=== PATIENT | male | born 1975 | race Two or more races ===

== ENCOUNTER → 2016-11-17 | Outpatient (REF) | payer BC, OTHER ==
[2016-11-17 12:47] LABS: BASO % 0.6 % (0.0-1.0); EOS # 0.1 K/mm3 (0.0-0.50); EOS % 0.9 % (0.0-3.0); LARGE UNSTAINED CELL # 0.1 K/mm3 (0.0-0.4); LARGE UNSTAINED CELL % 1.8 % (0.0-4.0); LYMPH # 2.9 K/mm3 (1.5-4.5); LYMPH % 35.1 % (24.0-44.0); MEAN CORPUSCULAR HEMOGLOBIN 29.9 pg (27.0-33.0); MEAN CORPUSCULAR HGB CONC 35.1 g/dl (32.0-36.5); MEAN CORPUSCULAR VOLUME 85.2 fl (80.0-96.0); MONO # 0.5 K/mm3 (0.0-0.8); MONO % 5.9 % (0.0-5.0); NEUTROPHILS # 4.4 K/mm3 (1.8-7.7); NEUTROPHILS % 55.8 % (36.0-66.0); PLATELET COUNT, AUTOMATED 221 k/mm3 (150-450); RED CELL DISTRIBUTION WIDTH 14.2 % (11.5-14.5); WHITE BLOOD COUNT 7.8 K/mm3 (4.0-10.0)
[2016-11-17 13:09] LABS: ALBUMIN 4.9 GM/DL (3.2-5.2); ALBUMIN/GLOBULIN RATIO 1.48 (1.00-1.93); ALKALINE PHOSPHATASE 72 U/L (45-117); ALT/SGPT 70 U/L (12-78); ANION GAP 7 MEQ/L (8-16); AST/SGOT 23 U/L (15-37); BILIRUBIN,TOTAL 1.6 MG/DL (0.2-1.0); BLOOD UREA NITROGEN 12 MG/DL (7-18); CALCIUM LEVEL 9.2 MG/DL (8.5-10.1); CARBON DIOXIDE LEVEL 29 MEQ/L (21-32); CHLORIDE LEVEL 106 MEQ/L (98-107); CHOLESTEROL LEVEL 93 MG/DL (<200); CREATININE FOR GFR 1.12 MG/DL (0.70-1.30); GLOMERULAR FILTRATION RATE > 60.0 (>60); GLUCOSE, FASTING 77 MG/DL (70-105); POTASSIUM SERUM 4.1 MEQ/L (3.5-5.1); SODIUM LEVEL 142 MEQ/L (136-145); TOTAL PROTEIN 8.2 GM/DL (6.4-8.2); TRIGLYCERIDES LEVEL 257 MG/DL (<150)
== END ==
LOC: M SFHCADAM 08:04
PROVIDERS: ATTEND Family Medicine
DX: Z00.00 Encounter for general adult medical examination without abnormal findings (principal)

== ENCOUNTER → 2017-01-05 | Outpatient (REF) | payer BC, OTHER ==
[2017-01-05 14:38] LABS: BILIRUBIN,DIRECT < 0.1 MG/DL (0.0-0.2); BILIRUBIN,TOTAL 0.6 MG/DL (0.2-1.0)
[2017-01-05 14:58] LABS: RETIC HEMOGLOBIN EQUIVALENT 37.1 pg (24-36); RETICULOCYTE % 2.6 % (0.5-1.5)
== END ==
LOC: M SFHCADAM 07:51
PROVIDERS: ATTEND Family Medicine
DX: E80.6 Other disorders of bilirubin metabolism (principal); R79.0 Abnormal level of blood mineral

== ENCOUNTER → 2017-03-13 | Outpatient (REF) | payer MEDICAID ==
[2017-03-13 12:41] LABS: MEAN CORPUSCULAR HEMOGLOBIN 28.8 pg (27.0-33.0); MEAN CORPUSCULAR HGB CONC 33.5 g/dl (32.0-36.5); PLATELET COUNT, AUTOMATED 191 10^3/uL (150-450); RED CELL DISTRIBUTION WIDTH 14.1 % (11.5-14.5); WHITE BLOOD COUNT 7.6 10^3/uL (4.0-10.0)
[2017-03-13 13:01] LABS: ALBUMIN 4.2 GM/DL (3.2-5.2); ALBUMIN/GLOBULIN RATIO 1.31 (1.00-1.93); ALKALINE PHOSPHATASE 63 U/L (45-117); ALT/SGPT 53 U/L (12-78); ANION GAP 8 MEQ/L (8-16); AST/SGOT 19 U/L (7-37); BILIRUBIN,TOTAL 0.6 MG/DL (0.2-1.0); BLOOD UREA NITROGEN 10 MG/DL (7-18); CALCIUM LEVEL 8.7 MG/DL (8.5-10.1); CARBON DIOXIDE LEVEL 28 MEQ/L (21-32); CHLORIDE LEVEL 106 MEQ/L (98-107); CREATININE FOR GFR 0.97 MG/DL (0.70-1.30); GLOMERULAR FILTRATION RATE > 60.0 (>60); GLUCOSE, FASTING 130 MG/DL (70-105); POTASSIUM SERUM 3.9 MEQ/L (3.5-5.1); SODIUM LEVEL 142 MEQ/L (136-145); TOTAL PROTEIN 7.4 GM/DL (6.4-8.2)
== END ==
LOC: M SFHCADAM 08:11
PROVIDERS: ATTEND Family Medicine
DX: E80.6 Other disorders of bilirubin metabolism (principal)

== ENCOUNTER → 2017-04-13 | Outpatient (REF) | payer MEDICAID, BC ==
[2017-04-13 14:53] LABS: ERYTHROCYTE SEDIMENTATION RATE 6 mm/hr (0-15)
[2017-04-13 15:09] LABS: C REACTIVE PROTEIN QUANTITATIV < 0.30 MG/DL (0.00-0.30); FREE T4 0.78 NG/DL (0.76-1.46)
== END ==
LOC: M SFHCADAM 13:30
DX: F32.9 Major depressive disorder, single episode, unspecified (principal); H53.9 Unspecified visual disturbance

== ENCOUNTER → 2017-04-17 | Outpatient (CLI) | payer MEDICAID | LOC: M RAD 11:36 | DX: R09.89 Other specified symptoms and signs involving the circulatory and respiratory systems (principal); R55 Syncope and collapse | CPT/HCPCS: 93880 ==

== ENCOUNTER → 2017-05-11 | Outpatient (REF) | payer OTHER ==
[2017-05-11 13:06] LABS: BASO % 0.5 % (0.0-1.0); EOS % 0.3 % (0.0-3.0); IMMATURE GRANULOCYTE % 0.2 % (0-3.0); LYMPH % 23.3 % (24.0-44.0); MEAN CORPUSCULAR HEMOGLOBIN 28.9 pg (27.0-33.0); MONO # 0.6 10^3/uL (0.0-0.8); MONO % 7.3 % (0.0-5.0); NEUTROPHILS # 5.9 10^3/uL (1.8-7.7); NEUTROPHILS % 68.4 % (36.0-66.0); PLATELET COUNT, AUTOMATED 203 10^3/uL (150-450); RED BLOOD COUNT 5.53 10^6/uL (4.30-6.10); RED CELL DISTRIBUTION WIDTH 13.5 % (11.5-14.5); WHITE BLOOD COUNT 8.6 10^3/uL (4.0-10.0)
[2017-05-11 13:12] LABS: VITAMIN B12 LEVEL 956 PG/ML
[2017-05-11 13:13] LABS: FOLATE 17.4 NG/ML
[2017-05-11 13:15] LABS: ALBUMIN 4.4 GM/DL (3.2-5.2); ALBUMIN/GLOBULIN RATIO 1.29 (1.00-1.93); ALKALINE PHOSPHATASE 78 U/L (45-117); ALT/SGPT 57 U/L (12-78); ANION GAP 8 MEQ/L (8-16); AST/SGOT 22 U/L (7-37); BILIRUBIN,TOTAL 1.2 MG/DL (0.2-1.0); BLOOD UREA NITROGEN 12 MG/DL (7-18); CALCIUM LEVEL 8.9 MG/DL (8.5-10.1); CARBON DIOXIDE LEVEL 29 MEQ/L (21-32); CHLORIDE LEVEL 104 MEQ/L (98-107); CREATININE FOR GFR 1.11 MG/DL (0.70-1.30); GLOMERULAR FILTRATION RATE > 60.0 (>60); GLUCOSE, FASTING 86 MG/DL (70-100); POTASSIUM SERUM 3.7 MEQ/L (3.5-5.1); RHEUMATOID FACTOR QUANT < 10.0 IU/ML (0-15.0); SODIUM LEVEL 141 MEQ/L (136-145); TOTAL PROTEIN 7.8 GM/DL (6.4-8.2)
[2017-05-11 13:34] LABS: ERYTHROCYTE SEDIMENTATION RATE 5 mm/hr (0-15)
[2017-05-12 14:10] LABS: ANTINUCLEAR ANTIBODIES DIRECT Negative (Negative)
== END ==
LOC: M LABNEURO 08:40
DX: R42 Dizziness and giddiness (principal)

== ENCOUNTER → 2017-06-05 | Outpatient (CLI) | payer OTHER | LOC: M SLEEP HO 08:55 | DX: G47.9 Sleep disorder, unspecified (principal) | CPT/HCPCS: G0399 ==

== ENCOUNTER → 2017-06-26 | Outpatient (CLI) | payer OTHER, MEDICAID | LOC: M SLEEP 19:04 | DX: G47.33 Obstructive sleep apnea (adult) (pediatric) (principal) | CPT/HCPCS: 95811 ==

== ENCOUNTER 2018-03-06 10:16 | Emergency (ER) | payer OTHER, MEDICAID ==
[2018-03-06 11:11] LABS: BASO # 0.1 10^3/uL (0.0-0.2); BASO % 0.6 % (0.0-1.0); EOS # 0.1 10^3/uL (0.0-0.50); EOS % 1.1 % (0.0-3.0); HEMATOCRIT 45.4 % (42.0-52.0); HEMOGLOBIN 15.8 g/dl (13.5-17.5); IMMATURE GRANULOCYTE % 0.4 % (0-3.0); LYMPH # 2.9 10^3/uL (1.5-4.5); LYMPH % 36.6 % (24.0-44.0); MEAN CORPUSCULAR HEMOGLOBIN 29.8 pg (27.0-33.0); MEAN CORPUSCULAR HGB CONC 34.8 g/dl (32.0-36.5); MEAN CORPUSCULAR VOLUME 85.7 fl (80.0-96.0); MONO # 0.5 10^3/uL (0.0-0.8); MONO % 6.6 % (0.0-5.0); NEUTROPHILS # 4.3 10^3/uL (1.8-7.7); NEUTROPHILS % 54.7 % (36.0-66.0); PLATELET COUNT, AUTOMATED 191 10^3/uL (150-450); WHITE BLOOD COUNT 7.9 10^3/uL (4.0-10.0)
[2018-03-06 11:21] LABS: INR 1.02; PROTHROMBIN TIME 13.5 SECONDS (12.1-14.4)
[2018-03-06 11:22] LABS: PARTIAL THROMBOPLASTIN TIME 24.6 SECONDS (25.4-37.6)
[2018-03-06 11:33] LABS: POS COUNT POS FLAG
[2018-03-06 12:02] LABS: ALBUMIN 4.1 GM/DL (3.2-5.2); ALBUMIN/GLOBULIN RATIO 1.24 (1.00-1.93); ALKALINE PHOSPHATASE 67 U/L (45-117); ALT/SGPT 79 U/L (12-78); ANION GAP 8 MEQ/L (8-16); AST/SGOT 37 U/L (7-37); BILIRUBIN,DIRECT 0.2 MG/DL (0.0-0.2); BILIRUBIN,TOTAL 0.9 MG/DL (0.2-1.0); BLOOD UREA NITROGEN 10 MG/DL (7-18); CALCIUM LEVEL 8.6 MG/DL (8.5-10.1); CARBON DIOXIDE LEVEL 26 MEQ/L (21-32); CHLORIDE LEVEL 105 MEQ/L (98-107); CPK CREATINE PHOSPHOKINASE 303 U/L (39-308); CREATININE FOR GFR 1.21 MG/DL (0.70-1.30); FREE T4 0.77 NG/DL (0.76-1.46); GLOMERULAR FILTRATION RATE > 60.0 (>60); GLUCOSE, FASTING 113 MG/DL (70-100); LIPASE 109 U/L (73-393); MB/CK RELATIVE INDEX 0.46 (< OR =4); POTASSIUM SERUM 4.3 MEQ/L (3.5-5.1); SODIUM LEVEL 139 MEQ/L (136-145); TOTAL PROTEIN 7.4 GM/DL (6.4-8.2); TROPONIN I < 0.02 NG/ML (< 0.10)
[2018-03-06] MEDS: GI COCKTAIL 50ML BTL(HYOSCYAMINE/MAALOX/LIDOCAINE VISCOUS)(1:3:1) PO (13:06)
[2018-03-06 15:15] LABS: CPK CREATINE PHOSPHOKINASE 250 U/L (39-308); MB/CK RELATIVE INDEX 0.48 (< OR =4); TROPONIN I < 0.02 NG/ML (< 0.10)
[2018-03-06] MEDS: PANTOPRAZOLE 40MG TAB (PROTONIX) PO (16:06)
[2018-03-06] MEDS: SUCRALFATE 1 GM TAB PO (16:07)
== END 2018-03-06 16:14 | disposition home or self-care (01) ==
LOC: M ED 10:16
DX: K21.0 Gastro-esophageal reflux disease with esophagitis (principal); I10 Essential (primary) hypertension; J45.909 Unspecified asthma, uncomplicated; G47.33 Obstructive sleep apnea (adult) (pediatric); Z79.899 Other long term (current) drug therapy
CPT/HCPCS: 71046

== ENCOUNTER 2018-05-10 16:28 | Emergency (ER) | payer MEDICAID, OTHER ==
[~2018-05-10] VITALS: Ht 170.2 cm; Wt 10.8 kg
[~2018-05-10 16:28] MED LIST: ATOR40TA75; LISI-538; MELA3TAB49 PO; PRIL20TA2 PO; SUCR1TAB56 PO; VITA100066 PO
[2018-05-10 16:29] VITALS: BP 133/70
[2018-05-10] MEDS ORDERED: VENTAER (16:58)
[2018-05-10] MEDS ORDERED: ADVAIR (16:58)
[2018-05-10] MEDS ORDERED: KEFL500C17 PO (17:14)
[2018-05-10] MEDS ORDERED: LIDOCAINE 1% MDV 20ML VIAL IM ONE (17:15)
[2018-05-10] MEDS ORDERED: IBUPROFEN 600 MG TAB PO ONE (17:45)
== END 2018-05-10 17:39 | disposition home or self-care (01) ==
LOC: M ED 16:28
DX: L02.412 Cutaneous abscess of left axilla (principal); I10 Essential (primary) hypertension

== ENCOUNTER 2018-07-01 08:17 | Emergency (ER) | payer MEDICAID, OTHER ==
[~2018-07-01] VITALS: Ht 165.1 cm; Wt 90.9 kg
[~2018-07-01 08:17] MED LIST changes: +ADVAIR; +KEFL500C17 PO; +VENTAER
[2018-07-01] MEDS ORDERED: MECL-86 PO (08:23)
[2018-07-01] MEDS ORDERED: LORazepam 2 MG/ML VIAL (J2060) IV STA (09:02)
[2018-07-01 09:07] LABS: BASO # 0.1 10^3/uL (0.0-0.2); BASO % 0.8 % (0.0-1.0); EOS # 0.1 10^3/uL (0.0-0.50); EOS % 1.7 % (0.0-3.0); HEMATOCRIT 44.7 % (42.0-52.0); HEMOGLOBIN 15.2 g/dl (13.5-17.5); LYMPH # 3.2 10^3/uL (1.5-4.5); LYMPH % 42.1 % (24.0-44.0); MEAN CORPUSCULAR VOLUME 85.3 fl (80.0-96.0); MONO # 0.7 10^3/uL (0.0-0.8); MONO % 8.8 % (0.0-5.0); NEUTROPHILS # 3.5 10^3/uL (1.8-7.7); NEUTROPHILS % 45.6 % (36.0-66.0); PLATELET COUNT, AUTOMATED 192 10^3/uL (150-450); RED BLOOD COUNT 5.24 10^6/uL (4.30-6.10); WHITE BLOOD COUNT 7.6 10^3/uL (4.0-10.0)
[2018-07-01] MEDS ORDERED: METOCLOPRAMIDE INJ 10MG/2ML VIAL (J2765) IV ONE (09:15)
[2018-07-01 09:27] LABS: BLOOD UREA NITROGEN 13 MG/DL (7-18); CALCIUM LEVEL 8.8 MG/DL (8.5-10.1); CARBON DIOXIDE LEVEL 27 MEQ/L (21-32); CHLORIDE LEVEL 106 MEQ/L (98-107); CPK CREATINE PHOSPHOKINASE 238 U/L (39-308); CREATININE FOR GFR 1.08 MG/DL (0.70-1.30); GLOMERULAR FILTRATION RATE > 60.0 (>60); GLUCOSE, FASTING 103 MG/DL (70-100); MB/CK RELATIVE INDEX 0.46 (< OR =4); POTASSIUM SERUM 4.3 MEQ/L (3.5-5.1); SODIUM LEVEL 137 MEQ/L (136-145); TROPONIN I < 0.02 NG/ML (< 0.10)
[2018-07-01 10:21] VITALS: O2SAT 98
[2018-07-01] MEDS ORDERED: PROM25TA22 PO (10:31)
[2018-07-01 10:35] VITALS: BP 135/81
--- NOTE | 2018-07-01 21:31 | ECGEPIP ---
Stationary ECG Study [facility] - ED Test Date: 2018-07-01 Pat Name: JOVANNY FOSTER Department: Room: - Gender: M Tray Server: : 1975 Requested By: Tong Reid Order Number: [id number] Reading MD: Tong Gruber Measurements Intervals [place] Rate: 76 P: 49 CT: 154 QRS: 27 QRSD: 108 T: 35 QT: 351 QTc: 396 Interpretive Statements SINUS RHYTHM MODERATE INTRAVENTRICULAR CONDUCTION DELAY SIMILAR TO 03/06/18 Electronically Signed On 07-01-2018 21:31:06 EDT by Tong Gruber
== END 2018-07-01 10:56 | disposition home or self-care (01) ==
LOC: M ED 08:17
DX: R42 Dizziness and giddiness (principal); J45.909 Unspecified asthma, uncomplicated; I10 Essential (primary) hypertension; E78.5 Hyperlipidemia, unspecified; F32.9 Major depressive disorder, single episode, unspecified; Z79.899 Other long term (current) drug therapy; Z79.51 Long term (current) use of inhaled steroids
CPT/HCPCS: 80048; 82550; 82553; 85025; 93005; 93041; 94760; 96374; 96375; 99285; J2060; J2765

== ENCOUNTER 2018-11-20 14:22 | Emergency (ER) | payer OTHER ==
[~2018-11-20] VITALS: Ht 170.2 cm; Wt 118.2 kg
[~2018-11-20 14:22] MED LIST changes: +MECL-86 PO; +PROM25TA22 PO
--- NOTE | 2018-11-20 15:38 | REP ---
CT of the cervical spine without contrast Indication: Fall. Comparison: None Technique: Axial CT of the cervical spine was performed without contrast. Bone reformatted images were provided in the axial, coronal and sagittal planes. Findings: There is no acute fracture or subluxation of the cervical spine. Vertebral body heights and intervertebral disc heights are maintained. The CT appearance of the spinal canal is within normal limits. The paraspinal soft tissues are within normal limits. There is no apical pneumothorax. Impression: No acute fracture or subluxation of the cervical spine. Electronically Signed by Simon Lakhani MD 11/20/2018 03:29 P
--- NOTE | 2018-11-20 15:43 | REP ---
CT of the lumbar spine without contrast Indication: Fall. Comparison: None Technique: Axial CT of the lumbar spine was performed without contrast. Axial, coronal and sagittal bone reformatted images were provided. Findings: There is no acute fracture or subluxation of the lumbar spine. There is normal alignment. Vertebral body heights are maintained. There are mild disc bulges. There is a lateral bridging osteophyte at L2-L3 on the left. The CT appearance of the spinal canal is within normal limits. The paraspinal soft tissues are normal. The sacroiliac joints are intact. Impression: No acute fracture or subluxation of the lumbar spine. Mild lumbar spondylosis. Electronically Signed by Simon Lakhani MD 11/20/2018 03:34 P
--- NOTE | 2018-11-20 16:41 | REP ---
Sacrum and coccyx three views: The sacroiliac articulations are unremarkable. The sacral ala and foramen are unremarkable. There is questionably a fracture of the distal sacrum. This should be correlated with clinical point tenderness. Consider CT or MRI for confirmation if felt clinically indicated. Electronically Signed by Mohidner Webb MD 11/20/2018 04:32 P
[2018-11-20] MEDS ORDERED: NORC1TAB7 PO (16:54)
[2018-11-20] MEDS ORDERED: [UNRECOGNIZED DRUG - SUPPLY] XX (16:59)
[2018-11-20 17:23] VITALS: BP 135/76
== END 2018-11-20 17:30 | disposition home or self-care (01) ==
LOC: M ED 14:22
DX: S32.2XXA Fracture of coccyx, initial encounter for closed fracture (principal); S30.0XXA Contusion of lower back and pelvis, initial encounter; W01.0XXA Fall on same level from slipping, tripping and stumbling without subsequent striking against object, initial encounter; Y92.89 Other specified places as the place of occurrence of the external cause; Y93.9 Activity, unspecified; Y99.0 Civilian activity done for income or pay; I10 Essential (primary) hypertension; J44.9 Chronic obstructive pulmonary disease, unspecified; M47.816 Spondylosis without myelopathy or radiculopathy, lumbar region; Z79.899 Other long term (current) drug therapy

== ENCOUNTER → 2019-09-03 | Outpatient (REF) | payer OTHER ==
[~2019-09-03] MED LIST changes: +NORC1TAB7 PO; +[UNRECOGNIZED DRUG - SUPPLY] XX
[2019-09-03 13:00] LABS: BASO # 0.1 10^3/uL (0.0-0.2); BASO % 0.8 % (0.0-1.0); EOS # 0.1 10^3/uL (0.0-0.5); EOS % 1.8 % (0.0-3.0); HEMATOCRIT 46.8 % (42.0-52.0); HEMOGLOBIN 15.4 g/dl (13.5-17.5); LYMPH # 2.9 10^3/uL (1.5-5.0); LYMPH % 37.1 % (24.0-44.0); MEAN CORPUSCULAR HEMOGLOBIN 28.4 pg (27.0-33.0); MEAN CORPUSCULAR HGB CONC 32.9 g/dl (32.0-36.5); MEAN CORPUSCULAR VOLUME 86.3 fl (80.0-96.0); MONO # 0.6 10^3/uL (0.0-0.8); MONO % 7.7 % (0.0-5.0); NEUTROPHILS # 4.1 10^3/uL (1.5-8.5); NEUTROPHILS % 52.1 % (36.0-66.0); PLATELET COUNT, AUTOMATED 224 10^3/uL (150-450); RED BLOOD COUNT 5.42 10^6/uL (4.30-6.10); WHITE BLOOD COUNT 7.9 10^3/uL (4.0-10.0)
[2019-09-03 13:31] LABS: ALBUMIN 4.1 GM/DL (3.2-5.2); ALT/SGPT 81 U/L (12-78); BILIRUBIN,TOTAL 0.8 MG/DL (0.2-1.0); BLOOD UREA NITROGEN 10 MG/DL (7-18); CALCIUM LEVEL 9.1 MG/DL (8.5-10.1); CARBON DIOXIDE LEVEL 26 MEQ/L (21-32); CHLORIDE LEVEL 105 MEQ/L (98-107); CHOLESTEROL LEVEL 165 MG/DL (<200); CHOLESTEROL RISK RATIO 6.346 (<5); CREATININE FOR GFR 1.07 MG/DL (0.70-1.30); FREE T4 0.94 NG/DL (0.76-1.46); GLOMERULAR FILTRATION RATE > 60.0 (>60); GLUCOSE, FASTING 138 MG/DL (70-100); HDL CHOLESTEROL 26 MG/DL (>40); NON-HDL-C 139 MG/DL; POTASSIUM SERUM 4.4 MEQ/L (3.5-5.1); SODIUM LEVEL 138 MEQ/L (136-145); TOTAL PROTEIN 7.4 GM/DL (6.4-8.2); TRIGLYCERIDES LEVEL 684 MG/DL (<150)
== END ==
LOC: M SFHCADAM 08:58
PROVIDERS: ATTEND Family Medicine
DX: Z00.00 Encounter for general adult medical examination without abnormal findings (principal)

== ENCOUNTER 2020-06-11 09:54 | Emergency (ER) | payer OTHER ==
[~2020-06-11] VITALS: Ht 172.7 cm; Wt 124.0 kg
[~2020-06-11 09:54] MED LIST changes: -LISI-538; +LISI20TA33
[2020-06-11] MEDS ORDERED: METF500T13 (10:05)
[2020-06-11 12:13] LABS: BASO # 0.1 10^3/uL (0.0-0.2); BASO % 0.6 % (0.0-1.0); EOS % 0.1 % (0.0-3.0); HEMATOCRIT 45.1 % (42.0-52.0); HEMOGLOBIN 15.4 g/dl (13.5-17.5); LYMPH # 1.9 10^3/uL (1.5-5.0); LYMPH % 23.7 % (24.0-44.0); MEAN CORPUSCULAR HEMOGLOBIN 28.7 pg (27.0-33.0); MEAN CORPUSCULAR HGB CONC 34.1 g/dl (32.0-36.5); MEAN CORPUSCULAR VOLUME 84.1 fl (80.0-96.0); MONO # 0.6 10^3/uL (0.0-0.8); MONO % 7.9 % (2.0-8.0); NEUTROPHILS # 5.5 10^3/uL (1.5-8.5); NEUTROPHILS % 67.2 % (36.0-66.0); PLATELET COUNT, AUTOMATED 189 10^3/uL (150-450); RED BLOOD COUNT 5.36 10^6/uL (4.30-6.10); WHITE BLOOD COUNT 8.1 10^3/uL (4.0-10.0)
[2020-06-11] MEDS ORDERED: BACT800T5 PO (12:46)
[2020-06-11 13:00] VITALS: BP 140/80
== END 2020-06-11 13:00 | disposition home or self-care (01) ==
LOC: M ED 09:54
DX: N48.22 Cellulitis of corpus cavernosum and penis (principal); E11.9 Type 2 diabetes mellitus without complications; I10 Essential (primary) hypertension; E78.5 Hyperlipidemia, unspecified; Z79.899 Other long term (current) drug therapy; Z79.84 Long term (current) use of oral hypoglycemic drugs

== ENCOUNTER → 2020-06-17 | Outpatient (REF) | payer OTHER ==
[~2020-06-17] MED LIST changes: +BACT800T5 PO; +METF500T13
[2020-06-17 13:23] LABS: HEMOGLOBIN A1c 7.8 %
[2020-06-17 13:30] LABS: ALBUMIN 4.3 GM/DL (3.2-5.2); ALT/SGPT 62 U/L (12-78); BILIRUBIN,TOTAL 0.5 MG/DL (0.2-1.0); BLOOD UREA NITROGEN 11 MG/DL (7-18); CALCIUM LEVEL 9.7 MG/DL (8.5-10.1); CARBON DIOXIDE LEVEL 26 MEQ/L (21-32); CHLORIDE LEVEL 102 MEQ/L (98-107); CREATININE FOR GFR 1.05 MG/DL (0.70-1.30); GLOMERULAR FILTRATION RATE > 60.0 (>60); GLUCOSE, FASTING 220 MG/DL (70-100); POTASSIUM SERUM 4.5 MEQ/L (3.5-5.1); SODIUM LEVEL 134 MEQ/L (136-145); TOTAL PROTEIN 7.5 GM/DL (6.4-8.2)
== END ==
LOC: M SFHCADAM 09:46
PROVIDERS: ATTEND Family Medicine
DX: E11.69 Type 2 diabetes mellitus with other specified complication (principal)

== ENCOUNTER → 2020-08-13 | Outpatient (REF) | payer OTHER ==
[2020-08-13 13:58] LABS: MAU/CREAT RATIO 94.9 MCG/MG (0.0-30.0)
[2020-08-13 14:04] LABS: ALBUMIN 4.1 GM/DL (3.2-5.2); ALT/SGPT 51 U/L (12-78); BILIRUBIN,TOTAL 0.5 MG/DL (0.2-1.0); BLOOD UREA NITROGEN 12 MG/DL (7-18); CARBON DIOXIDE LEVEL 28 MEQ/L (21-32); CHLORIDE LEVEL 104 MEQ/L (98-107); CHOLESTEROL LEVEL 211 MG/DL (<200); CHOLESTEROL RISK RATIO 7.535 (<5); CREATININE FOR GFR 0.89 MG/DL (0.70-1.30); FREE T4 0.75 NG/DL (0.76-1.46); GLOMERULAR FILTRATION RATE > 60.0 (>60); GLUCOSE, FASTING 170 MG/DL (70-100); HDL CHOLESTEROL 28 MG/DL (>40); NON-HDL-C 183 MG/DL; POTASSIUM SERUM 4.5 MEQ/L (3.5-5.1); SODIUM LEVEL 136 MEQ/L (136-145); TOTAL PROTEIN 7.5 GM/DL (6.4-8.2); TRIGLYCERIDES LEVEL 1069 MG/DL (<150)
[2020-08-13 14:46] LABS: HEMOGLOBIN A1c 6.6 %
== END ==
LOC: M SFHCADAM 08:09
PROVIDERS: ATTEND Family Medicine
DX: E11.69 Type 2 diabetes mellitus with other specified complication (principal); E66.01 Morbid (severe) obesity due to excess calories; Z68.41 Body mass index [BMI] 40.0-44.9, adult; E78.2 Mixed hyperlipidemia; I10 Essential (primary) hypertension

== ENCOUNTER → 2020-11-23 | Outpatient (REF) | payer OTHER ==
[~2020-11-23] MED LIST changes: +BP MEDICATION; +DOXY150C PO; +MECL1TAB31 PO; +PRED1TABL PO; +PROAAER10 INH; +triglyceride med
[2020-11-23 14:32] LABS: CHOLESTEROL RISK RATIO 3.066 (<5); FREE T4 0.88 NG/DL (0.76-1.46); THYROID STIMULATING HORMONE 1.52 uIU/ML (0.358-3.740)
[2020-11-23 14:34] LABS: MALB URINE SIEMENS 40.5 MG/L; MAU/CREAT RATIO 18.8 MCG/MG (0.0-30.0)
[2020-11-23 14:54] LABS: HEMOGLOBIN A1c 7.2 %
== END ==
LOC: M SFHCADAM 08:06
PROVIDERS: ATTEND Family Medicine
DX: R94.6 Abnormal results of thyroid function studies (principal); E11.69 Type 2 diabetes mellitus with other specified complication; E78.1 Pure hyperglyceridemia; R80.9 Proteinuria, unspecified

== ENCOUNTER → 2021-11-25 | Outpatient (CLI) | payer OTHER ==
[~2021-11-25] MED LIST changes: -DOXY150C PO; +DOXY150C3 PO
[2021-11-25 11:11] LABS: HEMOGLOBIN A1c 8.2 %
[2021-11-25 11:30] LABS: ALBUMIN 4.1 GM/DL (3.2-5.2); ALT/SGPT 68 U/L (12-78); BILIRUBIN,TOTAL 0.7 MG/DL (0.2-1.0); BLOOD UREA NITROGEN 10 MG/DL (7-18); CALCIUM LEVEL 9.7 MG/DL (8.5-10.1); CARBON DIOXIDE LEVEL 23 MEQ/L (21-32); CHLORIDE LEVEL 102 MEQ/L (98-107); CREATININE FOR GFR 1.03 MG/DL (0.70-1.30); GLOMERULAR FILTRATION RATE > 60.0 (>60); GLUCOSE, FASTING 180 MG/DL (70-100); POTASSIUM SERUM 4.2 MEQ/L (3.5-5.1); SODIUM LEVEL 134 MEQ/L (136-145); TOTAL PROTEIN 7.7 GM/DL (6.4-8.2)
== END ==
LOC: M LAB 09:43
PROVIDERS: ATTEND Family Medicine
DX: E11.69 Type 2 diabetes mellitus with other specified complication (principal)

== ENCOUNTER → 2022-02-20 | Outpatient (REF) | payer OTHER ==
[2022-02-20 13:48] LABS: CHLORIDE LEVEL 104 MMOL/L (98-107); SODIUM LEVEL 140 MMOL/L (136-145)
[2022-02-20 13:49] LABS: ALBUMIN 4.2 G/DL (3.2-5.2); CARBON DIOXIDE LEVEL 24 MMOL/L (20-31)
[2022-02-20 13:54] LABS: BILIRUBIN,TOTAL 0.6 MG/DL (0.3-1.2); BLOOD UREA NITROGEN 12 MG/DL (9-23)
[2022-02-20 13:55] LABS: ALKALINE PHOSPHATASE 63 U/L (46-116); CALCIUM LEVEL 9.2 MG/DL (8.5-10.1); GLUCOSE, FASTING 73 MG/DL (60-100)
[2022-02-20 13:56] LABS: TOTAL PROTEIN 7.3 G/DL (5.7-8.2)
[2022-02-20 13:57] LABS: ALT/SGPT 54 U/L (7.0-40); AST/SGOT 35 U/L (<34); CREATININE FOR GFR 0.82 MG/DL (0.70-1.30); GLOMERULAR FILTRATION RATE > 60.0 (>60)
[2022-02-20 14:16] LABS: MAU/CREAT RATIO 20.4 MCG/MG (0.0-30.0)
[2022-02-20 19:34] LABS: HEMOGLOBIN A1c 6.4 % (4.0-6.0)
== END ==
LOC: M SFHCADAM 09:30
PROVIDERS: ATTEND Family Medicine
DX: E11.69 Type 2 diabetes mellitus with other specified complication (principal)

== ENCOUNTER → 2022-07-04 | Outpatient (REF) | payer OTHER ==
[2022-07-04 14:44] LABS: ALBUMIN 4.5 G/DL (3.2-5.2); ALKALINE PHOSPHATASE 72 U/L (46-116); ALT/SGPT 46 U/L (7.0-40); AST/SGOT 19 U/L (<34); BILIRUBIN,TOTAL 0.7 MG/DL (0.3-1.2); BLOOD UREA NITROGEN 9 MG/DL (9-23); CALCIUM LEVEL 9.6 MG/DL (8.5-10.1); CARBON DIOXIDE LEVEL 29 MMOL/L (20-31); CHLORIDE LEVEL 106 MMOL/L (98-107); CREATININE FOR GFR 0.94 MG/DL (0.70-1.30); GLOMERULAR FILTRATION RATE > 60.0 (>60); GLUCOSE, FASTING 64 MG/DL (60-100); POTASSIUM SERUM 4.3 MMOL/L (3.5-5.1); SODIUM LEVEL 139 MMOL/L (136-145); TOTAL PROTEIN 7.5 G/DL (5.7-8.2)
[2022-07-04 16:13] LABS: HEMOGLOBIN A1c 6.1 % (4.0-6.0)
== END ==
LOC: M SFHCADAM 11:10
PROVIDERS: ATTEND Family Medicine
DX: E11.69 Type 2 diabetes mellitus with other specified complication (principal)

== ENCOUNTER → 2022-10-11 | Outpatient (REF) | payer OTHER | LOC: M SFHCADAM 16:35 | PROVIDERS: ATTEND Family Medicine | DX: Z53.9 Procedure and treatment not carried out, unspecified reason (principal) ==

== ENCOUNTER → 2023-01-08 | Outpatient (REF) | payer OTHER ==
[~2023-01-08] MED LIST changes: +MECL-209 PO; -MECL1TAB31 PO
[2023-01-08 15:00] LABS: BASO # 0.1 10^3/uL (0.0-0.2); BASO % 0.8 % (0.0-1.0); EOS # 0.2 10^3/uL (0.0-0.5); EOS % 2.2 % (0.0-3.0); HEMATOCRIT 44.9 % (42.0-52.0); HEMOGLOBIN 16.2 g/dl (13.5-17.5); LYMPH # 2.4 10^3/uL (1.5-5.0); LYMPH % 31.8 % (24.0-44.0); MEAN CORPUSCULAR HEMOGLOBIN 31.7 pg (27.0-33.0); MEAN CORPUSCULAR HGB CONC 36.1 g/dl (32.0-36.5); MEAN CORPUSCULAR VOLUME 87.9 fl (80.0-96.0); MONO # 0.6 10^3/uL (0.0-0.8); MONO % 7.2 % (2.0-8.0); NEUTROPHILS # 4.4 10^3/uL (1.5-8.5); NEUTROPHILS % 57.6 % (36.0-66.0); PLATELET COUNT, AUTOMATED 243 10^3/uL (150-450); RED BLOOD COUNT 5.11 10^6/uL (4.30-6.10); WHITE BLOOD COUNT 7.6 10^3/uL (4.0-10.0)
[2023-01-08 15:05] LABS: ALBUMIN 4.3 G/DL (3.2-5.2); ALKALINE PHOSPHATASE 80 U/L (46-116); ALT/SGPT 63 U/L (7.0-40); AST/SGOT 36 U/L (<34); BILIRUBIN,TOTAL 0.6 MG/DL (0.3-1.2); BLOOD UREA NITROGEN 12 MG/DL (9-23); CALCIUM LEVEL 9.1 MG/DL (8.5-10.1); CARBON DIOXIDE LEVEL 26 MMOL/L (20-31); CHLORIDE LEVEL 105 MMOL/L (98-107); CREATININE FOR GFR 0.85 MG/DL (0.70-1.30); GLOMERULAR FILTRATION RATE > 60.0 (>60); GLUCOSE, FASTING 100 MG/DL (60-100); POTASSIUM SERUM 4.4 MMOL/L (3.5-5.1); SODIUM LEVEL 140 MMOL/L (136-145); TOTAL PROTEIN 7.4 G/DL (5.7-8.2)
[2023-01-08 15:24] LABS: HEMOGLOBIN A1c 7.1 % (4.0-6.0)
== END ==
LOC: M SFHCADAM 08:29
PROVIDERS: ATTEND Family Medicine
DX: R09.89 Other specified symptoms and signs involving the circulatory and respiratory systems (principal); E11.69 Type 2 diabetes mellitus with other specified complication

== ENCOUNTER 2023-03-09 18:54 | Emergency (ER) | payer OTHER ==
[~2023-03-09] VITALS: Ht 170.2 cm; Wt 115.0 kg
[2023-03-09] MEDS ORDERED: ATOR80TA59 (19:04)
[2023-03-09] MEDS ORDERED: METF10004 (19:04)
[2023-03-09] MEDS ORDERED: GLIP5TAB17 (19:04)
[2023-03-09 20:08] LABS: BASO # 0.1 10^3/uL (0.0-0.2); BASO % 0.9 % (0.0-1.0); EOS # 0.2 10^3/uL (0.0-0.5); EOS % 1.9 % (0.0-3.0); LYMPH # 4.2 10^3/uL (1.5-5.0); MEAN CORPUSCULAR HEMOGLOBIN 28.7 pg (27.0-33.0); MEAN CORPUSCULAR VOLUME 84.2 fl (80.0-96.0); MONO # 0.9 10^3/uL (0.0-0.8); MONO % 7.5 % (2.0-8.0); NEUTROPHILS # 6.2 10^3/uL (1.5-8.5); NEUTROPHILS % 53.4 % (36.0-66.0); PLATELET COUNT, AUTOMATED 228 10^3/uL (150-450); RED BLOOD COUNT 5.58 10^6/uL (4.30-6.10); WHITE BLOOD COUNT 11.6 10^3/uL (4.0-10.0)
[2023-03-09 20:16] LABS: INR 1.05; PROTHROMBIN TIME 13.4 SECONDS (12.5-14.5)
[2023-03-09] MEDS ORDERED: ISOVUE-370 76% 100ML VIAL As Ordered ONE (20:18)
[2023-03-09 20:19] LABS: ERYTHROCYTE SEDIMENTATION RATE 12 mm/hr (0-15)
[2023-03-09 20:31] LABS: C REACTIVE PROTEIN QUANTITATIV < 0.40 MG/DL (<1.0)
[2023-03-09 20:43] LABS: ALBUMIN 4.6 G/DL (3.2-5.2); ALKALINE PHOSPHATASE 66 U/L (46-116); ALT/SGPT 67 U/L (7.0-40); AST/SGOT 92 U/L (<34); BILIRUBIN,DIRECT 0.1 MG/DL (<0.4); BILIRUBIN,TOTAL 0.8 MG/DL (0.3-1.2); LIPASE 38 U/L (12-53); TOTAL PROTEIN 7.8 G/DL (5.7-8.2)
[2023-03-09] MEDS ORDERED: ANUS2.5C2 TOP (22:46)
[2023-03-09 23:00] VITALS: BP 145/78; TEMP 98.1; O2SAT 99
== END 2023-03-09 23:22 | disposition home or self-care (01) ==
LOC: M ED 18:54
DX: K64.4 Residual hemorrhoidal skin tags (principal); E11.9 Type 2 diabetes mellitus without complications; I10 Essential (primary) hypertension; E78.5 Hyperlipidemia, unspecified; K57.30 Diverticulosis of large intestine without perforation or abscess without bleeding; K76.0 Fatty (change of) liver, not elsewhere classified; R16.2 Hepatomegaly with splenomegaly, not elsewhere classified; N32.89 Other specified disorders of bladder; Z79.899 Other long term (current) drug therapy
CPT/HCPCS: 74177; 80047; 80076; 83605; 83690; 85025; 85610; 85652; 85730; 86140; 86850; 86900; 86901; 93041; 99284; Q9967

== ENCOUNTER → 2023-05-10 | Outpatient (CLI) | payer OTHER, MEDICAID ==
[~2023-05-10] MED LIST changes: +ANUS2.5C2 TOP; +ATOR80TA59; +GLIP5TAB17; +METF10004
[2023-05-10 13:21] LABS: INR 1.03; PROTHROMBIN TIME 13.2 SECONDS (12.5-14.5)
[2023-05-10 13:37] LABS: TOTAL IRON BINDING CAPACITY 360 UG/DL (250-425)
[2023-05-10 13:38] LABS: ALBUMIN 4.8 G/DL (3.2-5.2); ALKALINE PHOSPHATASE 82 U/L (46-116); ALT/SGPT 60 U/L (7.0-40); AST/SGOT 31 U/L (<34); BILIRUBIN,DIRECT 0.2 MG/DL (<0.4); BILIRUBIN,TOTAL 0.7 MG/DL (0.3-1.2); IRON (FE) 59 UG/DL (65-175); PERCENT SATURATION 16.4 % (19.7-50.0); TOTAL PROTEIN 7.8 G/DL (5.7-8.2)
[2023-05-10 14:16] LABS: HEPATITIS B CORE ANTIBODY IGM NEGATIVE (NEGATIVE)
[2023-05-10 14:17] LABS: HEPATITIS C VIRUS ABY INDEX < 0.02 INDEX (<0.8)
[2023-05-10 18:29] LABS: APPEARANCE, URINE CLEAR (CLEAR); BACTERIA, URINE AUTO NEGATIVE (NEGATIVE); BILIRUBIN, URINE AUTO NEGATIVE (NEGATIVE); BLOOD, URINE BLOOD NEGATIVE (NEGATIVE); COLOR, URINE YELLOW (YELLOW); GLUCOSE, URINE (UA) AUTO 3+ mg/dL (NEGATIVE); KETONE, URINE AUTO NEGATIVE (NEGATIVE); LEUKOCYTE ESTERASE, URINE AUTO NEGATIVE (NEGATIVE); MUCUS, URINE SMALL (NEGATIVE); NITRITE, URINE AUTO NEGATIVE (NEGATIVE); PROTEIN, URINE AUTO NEGATIVE (NEGATIVE); RBC, URINE AUTO 0 /HPF (0-3); SPECIFIC GRAVITY URINE AUTO 1.023 (1.002-1.035); SQUAMOUS EPITHELIAL CELL UR AU 0 /HPF (0-6); UROBILINOGEN, URINE AUTO 0.2 mg/dL (0.0-2.0); WBC, URINE AUTO 0 /HPF (0-3)
[2023-05-14 16:08] LABS: ANCA-ATYPICAL <1:20 titer (Neg:<1:20); ANTI-MITOCHONDRIAL ANTIBODY <20.0 Units (0.0-20.0); ANTINUCLEAR ANTIBODIES DIRECT Negative (Negative); CERULOPLASMIN 22.3 mg/dL (16.0-31.0); CYTOPLASMIC NEUTROP AB ANCA-C <1:20 titer (Neg:<1:20); LIVER-KIDNEY MICROSOMAL ABY <20.1 Units (0.0-20.0); PERINUCLEAR AB ANCA-P <1:20 titer (Neg:<1:20); TISSUE TRANSGLUTAMINASE IgA <2 U/mL (0-3)
== END ==
LOC: M LABDRWAD 10:44
PROVIDERS: ATTEND Internal Medicine Gastroenterology
DX: R74.01 Elevation of levels of liver transaminase levels (principal); R93.89 Abnormal findings on diagnostic imaging of other specified body structures

== ENCOUNTER → 2023-05-23 | Outpatient (REF) | payer OTHER, MEDICAID ==
[2023-05-23 17:46] LABS: APPEARANCE, URINE CLEAR (CLEAR); BACTERIA, URINE AUTO NEGATIVE (NEGATIVE); BILIRUBIN, URINE AUTO NEGATIVE (NEGATIVE); BLOOD, URINE BLOOD NEGATIVE (NEGATIVE); COLOR, URINE YELLOW (YELLOW); GLUCOSE, URINE (UA) AUTO 1+ mg/dL (NEGATIVE); KETONE, URINE AUTO NEGATIVE (NEGATIVE); LEUKOCYTE ESTERASE, URINE AUTO NEGATIVE (NEGATIVE); NITRITE, URINE AUTO NEGATIVE (NEGATIVE); PROTEIN, URINE AUTO NEGATIVE (NEGATIVE); RBC, URINE AUTO 0 /HPF (0-3); SPECIFIC GRAVITY URINE AUTO 1.015 (1.002-1.035); SQUAMOUS EPITHELIAL CELL UR AU 0 /HPF (0-6); WBC, URINE AUTO 0 /HPF (0-3)
== END ==
LOC: M SMT 16:52
PROVIDERS: ATTEND Urology
DX: R93.89 Abnormal findings on diagnostic imaging of other specified body structures (principal)

== ENCOUNTER → 2023-07-02 | Outpatient (REF) | payer OTHER, MEDICAID ==
[~2023-07-02] MED LIST changes: -DOXY150C3 PO; +DOXY150C5 PO
[2023-07-02 13:01] LABS: HEMOGLOBIN A1c 7.4 % (4.0-6.0)
[2023-07-02 13:06] LABS: ALBUMIN 4.1 G/DL (3.2-5.2); ALKALINE PHOSPHATASE 80 U/L (46-116); ALT/SGPT 57 U/L (7.0-40); AST/SGOT 40 U/L (<34); BILIRUBIN,TOTAL 0.6 MG/DL (0.3-1.2); BLOOD UREA NITROGEN 14 MG/DL (9-23); CALCIUM LEVEL 9.4 MG/DL (8.5-10.1); CARBON DIOXIDE LEVEL 27 MMOL/L (20-31); CHLORIDE LEVEL 103 MMOL/L (98-107); CREATININE FOR GFR 0.86 MG/DL (0.70-1.30); GLOMERULAR FILTRATION RATE > 60.0 (>60); GLUCOSE, FASTING 149 MG/DL (60-100); POTASSIUM SERUM 4.1 MMOL/L (3.5-5.1); SODIUM LEVEL 138 MMOL/L (136-145); TOTAL PROTEIN 7.2 G/DL (5.7-8.2)
== END ==
LOC: M SFHCADAM 08:54
PROVIDERS: ATTEND Family Medicine
DX: E11.69 Type 2 diabetes mellitus with other specified complication (principal)

== ENCOUNTER → 2023-10-17 | Outpatient (REF) | payer OTHER, MEDICAID ==
[~2023-10-17] MED LIST changes: +ADV250INH INH; +ALBU8.5H INH; -ATOR80TA59; +ATOR80TA59 PO; +BAYE81TA10 PO; -GLIP5TAB17; +GLIP5TAB17 PO; -LISI20TA33; +LISI20TA33 PO; -METF10004; +METF10004 PO; +VITA100093 PO; +VITA500038 PO
[2023-10-17 13:09] LABS: ALBUMIN 3.9 G/DL (3.2-5.2); ALKALINE PHOSPHATASE 87 U/L (46-116); ALT/SGPT 57 U/L (7.0-40); AST/SGOT 50 U/L (<34); BILIRUBIN,TOTAL 0.6 MG/DL (0.3-1.2); BLOOD UREA NITROGEN 12 MG/DL (9-23); CALCIUM LEVEL 9.3 MG/DL (8.5-10.1); CARBON DIOXIDE LEVEL 24 MMOL/L (20-31); CHLORIDE LEVEL 101 MMOL/L (98-107); CREATININE FOR GFR 0.74 MG/DL (0.70-1.30); GLOMERULAR FILTRATION RATE > 60.0 (>60); GLUCOSE, FASTING 207 MG/DL (60-100); POTASSIUM SERUM 4.2 MMOL/L (3.5-5.1); SODIUM LEVEL 132 MMOL/L (136-145); TOTAL PROTEIN 6.7 G/DL (5.7-8.2)
[2023-10-17 13:15] LABS: HEMOGLOBIN A1c 9.2 % (4.0-6.0)
== END ==
LOC: M SFHCADAM 08:39
PROVIDERS: ATTEND Family Medicine
DX: E11.69 Type 2 diabetes mellitus with other specified complication (principal)

== ENCOUNTER → 2024-02-07 | Outpatient (REF) | payer OTHER, MEDICAID ==
[2024-02-07 12:59] LABS: BASO # 0.1 10^3/uL (0.0-0.2); BASO % 0.8 % (0.0-1.0); EOS # 0.2 10^3/uL (0.0-0.5); EOS % 1.7 % (0.0-3.0); HEMATOCRIT 47.2 % (42.0-52.0); HEMOGLOBIN 15.9 g/dl (13.5-17.5); LYMPH # 2.6 10^3/uL (1.5-5.0); LYMPH % 29.9 % (24.0-44.0); MEAN CORPUSCULAR HEMOGLOBIN 28.4 pg (27.0-33.0); MEAN CORPUSCULAR HGB CONC 33.7 g/dl (32.0-36.5); MEAN CORPUSCULAR VOLUME 84.4 fl (80.0-96.0); MONO # 0.6 10^3/uL (0.0-0.8); MONO % 6.4 % (2.0-8.0); NEUTROPHILS # 5.4 10^3/uL (1.5-8.5); NEUTROPHILS % 60.7 % (36.0-66.0); PLATELET COUNT, AUTOMATED 229 10^3/uL (150-450); RED BLOOD COUNT 5.59 10^6/uL (4.30-6.10); WHITE BLOOD COUNT 8.8 10^3/uL (4.0-10.0)
[2024-02-07 13:05] LABS: THYROID STIMULATING HORMONE 2.775 uIU/ML (0.55-4.78)
[2024-02-07 13:06] LABS: ALBUMIN 4.3 G/DL (3.2-5.2); ALKALINE PHOSPHATASE 84 U/L (40-129); ALT/SGPT 52 U/L (7.0-40); AST/SGOT 34 U/L (<34); BILIRUBIN,TOTAL 0.7 MG/DL (0.3-1.2); BLOOD UREA NITROGEN 12 MG/DL (9-23); CALCIUM LEVEL 10.1 MG/DL (8.5-10.1); CARBON DIOXIDE LEVEL 26 MMOL/L (20-31); CHLORIDE LEVEL 103 MMOL/L (98-107); CHOLESTEROL LEVEL 187 MG/DL (<200); CHOLESTEROL RISK RATIO 6.82 (<5); CREATININE FOR GFR 0.89 MG/DL (0.70-1.30); GLOMERULAR FILTRATION RATE > 60.0 (>60); GLUCOSE, FASTING 173 MG/DL (60-100); HDL CHOLESTEROL 27.4 MG/DL (>40); NON-HDL-C 159.6 MG/DL; POTASSIUM SERUM 4.4 MMOL/L (3.5-5.1); SODIUM LEVEL 138 MMOL/L (136-145); TOTAL PROTEIN 7.7 G/DL (5.7-8.2); TRIGLYCERIDES LEVEL 710 MG/DL (<150)
[2024-02-07 13:17] LABS: HEMOGLOBIN A1c 9.1 % (4.0-6.0)
== END ==
LOC: M SFHCADAM 10:29
PROVIDERS: ATTEND Family Medicine
DX: Z00.00 Encounter for general adult medical examination without abnormal findings (principal); E11.69 Type 2 diabetes mellitus with other specified complication; E78.2 Mixed hyperlipidemia

== ENCOUNTER → 2024-07-21 | Outpatient (REF) | payer OTHER ==
[~2024-07-21] MED LIST changes: -ADV250INH INH; +ADVA1AER9 INH; +PRED-1142 PO; -PRED1TABL PO
[2024-07-21 17:57] LABS: ALKALINE PHOSPHATASE 86 U/L (40-129); ALT/SGPT 66 U/L (7.0-40); AST/SGOT 60 U/L (<34); BILIRUBIN,TOTAL 0.5 MG/DL (0.3-1.2); BLOOD UREA NITROGEN 13 MG/DL (9-23); CALCIUM LEVEL 9.4 MG/DL (8.5-10.1); CARBON DIOXIDE LEVEL 27 MMOL/L (20-31); CHLORIDE LEVEL 102 MMOL/L (98-107); CREATININE, URINE 54.8 MG/DL; GLOMERULAR FILTRATION RATE > 90.0 (>60); GLUCOSE, FASTING 289 MG/DL (60-100); MAU/CREAT RATIO 60.2 MCG/MG (0.0-30.0); SODIUM LEVEL 139 MMOL/L (136-145); TOTAL PROTEIN 7.4 G/DL (5.7-8.2)
[2024-07-21 18:36] LABS: HEMOGLOBIN A1c 9.8 % (4.0-6.0)
== END ==
LOC: M SFHCADAM 11:38
PROVIDERS: ATTEND Family Medicine
DX: E11.69 Type 2 diabetes mellitus with other specified complication (principal)

== ENCOUNTER → 2024-10-14 | Outpatient (REF) | payer OTHER ==
[2024-10-14 19:26] LABS: ALT/SGPT 58 U/L (7.0-40); AST/SGOT 47 U/L (<34); CALCIUM LEVEL 8.9 MG/DL (8.5-10.1); CARBON DIOXIDE LEVEL 25 MMOL/L (20-31); CHLORIDE LEVEL 103 MMOL/L (98-107); CREATININE FOR GFR 0.97 MG/DL (0.70-1.30); GLOMERULAR FILTRATION RATE > 90.0 (>60); POTASSIUM SERUM 4.0 MMOL/L (3.5-5.1); SODIUM LEVEL 142 MMOL/L (136-145)
[2024-10-14 20:02] LABS: ESTIMATED AVERAGE GLUCOSE 163.0 MG/DL (60-110)
== END ==
LOC: M SFHCADAM 11:10
PROVIDERS: ATTEND Family Medicine
DX: E11.69 Type 2 diabetes mellitus with other specified complication (principal)

== ENCOUNTER → 2024-12-18 | Outpatient (REF) | payer OTHER ==
[2024-12-18 14:04] LABS: ALT/SGPT 53.0 U/L (7.0-40); AST/SGOT 37.0 U/L (<34); CALCIUM LEVEL 9.3 MG/DL (8.5-10.1); CARBON DIOXIDE LEVEL 26.0 MMOL/L (20-31); CHLORIDE LEVEL 104.0 MMOL/L (98-107); CREATININE FOR GFR 1.09 MG/DL (0.70-1.30); GLOMERULAR FILTRATION RATE 83.2 (>60); POTASSIUM SERUM 4.3 MMOL/L (3.5-5.1); SODIUM LEVEL 140.0 MMOL/L (136-145)
[2024-12-18 14:07] LABS: MALB URINE SIEMENS 73.0 MG/L
[2024-12-18 14:08] LABS: CREATININE, URINE 154.3 MG/DL; MAU/CREAT RATIO 47.3 MCG/MG (0.0-30.0)
[2024-12-18 16:36] LABS: ESTIMATED AVERAGE GLUCOSE 154.0 MG/DL (60-110)
== END ==
LOC: M SFHCADAM 10:35
PROVIDERS: ATTEND Family Medicine
DX: E11.69 Type 2 diabetes mellitus with other specified complication (principal); J45.50 Severe persistent asthma, uncomplicated

== ENCOUNTER 2024-12-20 19:27 | Emergency (ER) | payer OTHER ==
[~2024-12-20] VITALS: Ht 170.2 cm; Wt 104.5 kg
[2024-12-20 19:56] LABS: KETONE, URINE AUTO RFX TRACE mg/dL (NEGATIVE); LEUKOCYTE ESTERASE UR AUTO RFX NEGATIVE (NEGATIVE); NITRITE, URINE AUTO RFX NEGATIVE (NEGATIVE); RBC, URINE AUTO RFX 0 /HPF (0-3); SQUAM EPITHELIAL CELL UR AURFX 0 /HPF (0-6); WBC, URINE AUTO RFX 0 /HPF (0-3)
[2024-12-20 20:31] LABS: BASO # 0.1 10^3/uL (0.0-0.2); BASO % 0.6 % (0.0-1.0); EOS # 0.2 10^3/uL (0.0-0.5); EOS % 1.3 % (0.0-3.0); LYMPH # 3.3 10^3/uL (1.5-5.0); LYMPH % 27.5 % (24.0-44.0); MONO # 0.6 10^3/uL (0.0-0.8); MONO % 5.1 % (2.0-8.0); NEUTROPHILS # 7.9 10^3/uL (1.5-8.5); NEUTROPHILS % 65.2 % (36.0-66.0); PLATELET COUNT, AUTOMATED 231 10^3/uL (150-450)
[2024-12-20 21:01] LABS: ALT/SGPT 53.0 U/L (7.0-40); AST/SGOT 42.0 U/L (<34)
[2024-12-20] MEDS ORDERED: ISOVUE-370 76% 100 ML VIAL As Ordered ONE (23:41)
[2024-12-20] MEDS: KETOROLAC 30 MG/ML 1 ML VIAL IV ONE (23:45)
[2024-12-20] MEDS: NS (Normal Saline) 0.9% 1,000 ML IV ONE (23:46)
[2024-12-21] MEDS ORDERED: COLA100C5 PO (06:43)
[2024-12-21 06:45] VITALS: BP 150/81; TEMP 97.4; O2SAT 99
[2024-12-21] MEDS: DOCUSATE SODIUM 100 MG CAPSULE PO ONE (06:49)
== END 2024-12-21 06:58 | disposition home or self-care (01) ==
LOC: M ED 19:27
DX: K59.00 Constipation, unspecified (principal); E11.9 Type 2 diabetes mellitus without complications; I10 Essential (primary) hypertension; E78.5 Hyperlipidemia, unspecified; Z79.51 Long term (current) use of inhaled steroids; Z79.1 Long term (current) use of non-steroidal anti-inflammatories (NSAID); Z79.84 Long term (current) use of oral hypoglycemic drugs; Z79.899 Other long term (current) drug therapy
CPT/HCPCS: 74177; 80047; 80076; 81001; 83690; 85025; 96361; 96374; 99285; J1885; Q9967

== ENCOUNTER → 2025-02-16 | Outpatient (REF) | payer OTHER ==
[~2025-02-16] MED LIST changes: +COLA100C5 PO
[2025-02-16 17:56] LABS: ALT/SGPT 45 U/L (7.0-40); AST/SGOT 26 U/L (<34); CALCIUM LEVEL 9.3 MG/DL (8.5-10.1); CARBON DIOXIDE LEVEL 28 MMOL/L (20-31); CHLORIDE LEVEL 104 MMOL/L (98-107); CREATININE FOR GFR 0.90 MG/DL (0.70-1.30); GLOMERULAR FILTRATION RATE > 90.0 (>56); POTASSIUM SERUM 4.1 MMOL/L (3.5-5.1); SODIUM LEVEL 143 MMOL/L (136-145)
== END ==
LOC: M SFHCADAM 12:29
PROVIDERS: ATTEND Family Medicine
DX: J45.50 Severe persistent asthma, uncomplicated (principal)

== ENCOUNTER → 2025-03-16 | Outpatient (REF) | payer OTHER ==
[2025-03-16 13:54] LABS: ALT/SGPT 33 U/L (7.0-40); AST/SGOT 25 U/L (<34); CALCIUM LEVEL 8.9 MG/DL (8.5-10.1); CARBON DIOXIDE LEVEL 27 MMOL/L (20-31); CHLORIDE LEVEL 105 MMOL/L (98-107); CREATININE FOR GFR 0.87 MG/DL (0.70-1.30); GLOMERULAR FILTRATION RATE > 90.0 (>56); POTASSIUM SERUM 4.2 MMOL/L (3.5-5.1); SODIUM LEVEL 141 MMOL/L (136-145)
[2025-03-16 14:02] LABS: ESTIMATED AVERAGE GLUCOSE 148.0 MG/DL (60-110)
== END ==
LOC: M SFHCADAM 09:45
PROVIDERS: ATTEND Family Medicine
DX: E11.69 Type 2 diabetes mellitus with other specified complication (principal)